=== PATIENT | male | born 1970 | race Caucasian/White ===

== ENCOUNTER 2017-10-24 07:55 | Emergency (ER) | payer SELFPAY ==
[2017-10-24] MEDS ORDERED: LIDOCAINE 1% INJ (10 MG/ML) 10 ML MDV INJ ONE (09:13)
--- NOTE | 2017-10-24 09:16 | ER Document Report ---
ED Extremity Problem, Lower - General Chief Complaint: Knee Pain Stated Complaint: KNEE PAIN Time Seen by Provider: 10/24/17 09:12 Mode of Arrival: Ambulatory Information source: Patient Notes: Patient is a 47-year-old male comes emergency room complaining of swelling to his left knee. Patient states he was up on a ladder about 5 days ago this past he slipped and slid down the ladder striking his left knee on 1 of the rungs. He is noticed that the swelling is developed over the course of the last few days and it is nonpainful but very uncomfortable. He has full range of motion full ambulation but the swelling appears to be getting worse and feels like it is draining down into his leg further. Patient denies any other injury at this time. TRAVEL OUTSIDE OF THE [place] IN LAST 30 DAYS: No - HPI Patient complains to provider of: Swelling Location: Knee Occurred: Other - 5 days ago Where: Home Onset/Duration: Sudden, Worse Quality of pain: Throbbing Severity: Moderate Pain Level: 2 Context: Direct blow Recent injury: Yes Exacerbated by: Movement Relieved by: Elevation - Related Data Allergies/Adverse Reactions: No Known Allergies Allergy (Verified 10/06/15 09:22) Past Medical History - Social History Smoking Status: Current Every Day Smoker Cigarette use (# per day): Yes - Half-pack a day Chew tobacco use (# tins/day): No Smoking Education Provided: Yes Frequency of alcohol use: Social Drug Abuse: None Lives with: Family Family History: Reviewed & Not Pertinent Patient has suicidal ideation: No Patient has homicidal ideation: No Renal/ Medical History: Denies: Hx Peritoneal Dialysis Musculoskeletal Medical History: Reports Hx Arthritis Past Surgical History: Reports: Hx Oral Surgery - wisdom teeth extracted Review of Systems - Review of Systems Constitutional: No symptoms reported EENT: No symptoms reported Cardiovascular: No symptoms reported Respiratory: No symptoms reported Gastrointestinal: No symptoms reported Genitourinary: No symptoms reported Male Genitourinary: No symptoms reported Musculoskeletal: Leg swelling Skin: No symptoms reported Hematologic/Lymphatic: No symptoms reported Neurological/Psychological: No symptoms reported -: Yes All other systems reviewed and negative Physical Exam - Vital signs Vitals: Temp Pulse Resp BP Pulse Ox 98.1 F 76 16 129/85 H 99 10/24/17 08:29 10/24/17 08:29 10/24/17 08:29 10/24/17 08:29 10/24/17 08:29 Interpretation: Normal - Notes Notes: Well-appearing 47-year-old male no distress. - General General appearance: Appears well In distress: None - Respiratory Respiratory status: No respiratory distress Chest status: Nontender, No pleuritic chest pain Breath sounds: Normal Chest palpation: Normal - Cardiovascular Rhythm: Regular Heart sounds: Normal auscultation Murmur: No - Extremities General upper extremity: Normal inspection, Normal ROM General lower extremity: Edema, Normal ROM, Normal strength, Normal temperature Knee: Nontender, Other - Inferior patellar swelling bursa sac. Examination shows patient has probably size of 2 golf balls areas of swelling at the inferior patella bursa sac. It has moderate fluctuance there is no warmth or erythema no redness. There is no abrasions noted. No sign of swelling.. No: Drawer's test instability, Instability, Joint effusion, Laxity with varus stress Calf: Normal Ankle: Normal Foot: Normal - Neurological Neuro grossly intact: Yes [place] Coma Scale Eye Opening: Spontaneous [place] Coma Scale Verbal: Oriented [place] Coma Scale Motor: Obeys Commands Kobi Coma Scale Total: 15 Speech: Normal Course - Re-evaluation Re-evalutation: 10/24/17 11:55 Patient had a the area of the bursa sac swelling. We drained the area approximately 30 cc of clear synovial fluid. There were no complications. - Vital Signs Vital signs: Temp Pulse Resp BP Pulse Ox 98.1 F 76 16 129/85 H 99 10/24/17 08:29 10/24/17 08:29 10/24/17 08:29 10/24/17 08:29 10/24/17 08:29 Procedures - Joint Aspiration Knee Time completed: 11:56 Consent obtained: Yes Joint aspiration pre-procedure: Sterile PPE donned, Betadine prep applied, Chloraprep applied, Sterile drapes applied Anesthetic type: 1% Lidocaine mL's of anesthetic: 2 Needle size: 18 Amount/type of drainage: Drained out 30 mL's of clear yellowish synovial fluid Number of attempts: 1 Complications: No Notes: After drainage of the area which was 30 cc of clear yellowish synovial fluid I also Victorino wrapped patient's leg with a 6 inch Victorino wrap for compression. Patient tolerated everything well. Discharge - Discharge Clinical Impression: Patellar bursitis of left knee, Synovial fluid aspiration Condition: Stable Disposition: HOME, SELF-CARE Instructions: Knee Immobilizing Splint ([facility]), Ice & Elevation ([facility]) Additional Instructions: Home and rest. Ice to the area 3 times a day. As we discussed use the Victorino wrap only when you are ambulatory. If the synovial fluid should return to the bursa area give you the name of the orthopedic salesperson [facility] furnish[facility] today and you may contact the office to see if they can accommodate you. Please do not try to aspirate it yourself. I am also placing you on antibiotics as a prophylactic treatment because of the possibility of infection. Should you have any concerns or problems return to ER for a recheck. Prescriptions: Cephalexin Monohydrate [Keflex 500 mg Capsule] 500 mg PO Q6H 4 Days #16 capsule Cephalexin Monohydrate [Keflex 500 mg Capsule] 500 mg PO Q6H 3 Days #12 capsule Prednisone [Deltasone 20 mg Tablet] 3 tab PO DAILY 3 Days #9 tablet Prednisone [Deltasone 20 mg Tablet] 3 tab PO DAILY 2 Days #6 tablet Referrals: SERA WAHL MD [ACTIVE STAFF] - Follow up as needed
--- NOTE | 2017-10-24 10:11 | RADIOLOGY REPORT (SQ) ---
EXAM DESCRIPTION: KNEE LEFT 3 VIEWS COMPLETED DATE/TIME: 10/24/2017 9:54 am REASON FOR STUDY: blunt trauma COMPARISON: None. NUMBER OF VIEWS: Three views. TECHNIQUE: AP, lateral, and sunrise patella radiographic images acquired of the left knee. LIMITATIONS: None. FINDINGS: MINERALIZATION: Normal. BONES: No acute fracture or dislocation. No worrisome bone lesions. JOINT: No effusion. SOFT TISSUES: Marked soft tissue swelling anterior soft tissues below the level of patella. OTHER: No other significant finding. IMPRESSION: Marked subcutaneous soft tissue swelling anterior inferior to the patella. No acute fra cture or joint effusion. TECHNICAL DOCUMENTATION: JOB ID: [id number] [employer]- All Rights Reserved Reading location - IP/workstation name: [email or web address]
[2017-10-24] MEDS ORDERED: LIDOCAINE 1% INJ-PF (10 MG/ML) 30 ML SDV ONE (11:30)
[2017-10-24 12:18] VITALS: BP 120/77
== END 2017-10-24 12:30 | disposition home or self-care (01) ==
LOC: ER 07:55
PROC: 0MJY3ZZ Inspection of Lower Bursa and Ligament, Percutaneous Approach (ICD-10-PCS; principal; 2017-10-24)
DX: M70.42 Prepatellar bursitis, left knee (principal); F17.210 Nicotine dependence, cigarettes, uncomplicated
CPT/HCPCS: 99283; 73562; 20610; J3490